=== PATIENT | female | born 1995 | race Caucasian/White ===

== ENCOUNTER 2019-02-18 13:20 | Inpatient (IN) | payer BC, MEDICAID ==
[~2019-02-18] VITALS: Ht 157.5 cm; Wt 68.0 kg
[~2019-02-18 13:20] MED LIST: ALPR-624 PO; [UNRECOGNIZED DRUG - REMARK]
[2019-02-18] MEDS ORDERED: normal saline 1000ML IV soln IVB ONE (16:15)
[2019-02-18] MEDS ORDERED: ondansetron/PF 4mg/2ml inj IV ONE (16:15)
[2019-02-18] MEDS ORDERED: morphine 4 MG/ML inj SYRINge IV ONE ×2 (16:15→18:55)
[2019-02-18] MEDS ORDERED: iohexol 300mg/ml 100ml inj. ONE (16:22)
[2019-02-18 16:55] LABS: BASOPHILS % (AUTO) 0.5 % (0-1); EOSINOPHILS # (AUTO) 0.1 X10'3 (0-0.9); EOSINOPHILS % (AUTO) 1.3 % (0-6); HEMATOCRIT 35.5 % (35.0-45.0); HEMOGLOBIN 12.3 g/dl (12.0-16.0); LYMPHOCYTES # (AUTO) 2.8 X10'3 (1.1-4.8); LYMPHOCYTES % (AUTO) 36.5 % (21-51); MEAN CORPUSCULAR HEMOGLOBIN 31.9 PG (27.0-31.0); MEAN CORPUSCULAR HGB CONC 34.7 g/dL (33.0-36.5); MEAN PLATELET VOLUME 8.8 FL (7.4-10.4); MONOCYTES # (AUTO) 0.6 X10'3 (0-0.9); NEUTROPHILS # (AUTO) 4.2 X10'3 (1.8-7.7); NEUTROPHILS % (AUTO) 53.7 % (42-75); PLATELET COUNT 220 X10'3 (140-440); RED BLOOD COUNT 3.86 X10'6 (4.20-5.60); RED CELL DISTRIBUTION WIDTH 12.3 % (11.5-14.5); WHITE BLOOD COUNT 7.7 X10'3 (4.5-11.0)
[2019-02-18 17:00] LABS: HCG SERUM QL NEGATIVE; LIPASE 62 U/L (73-393)
[2019-02-18 17:03] LABS: PARTIAL THROMBOPLASTIN TIME 26 SECONDS (22-32)
[2019-02-18 17:15] LABS: CLARITY,URINE CLEAR (Clear); COLOR,URINE YELLOW (Yellow); GLUCOSE, URINE NEGATIVE (Neg); KETONES,URINE NEGATIVE (Neg); LEUKOCYTE ESTERASE ,URINE NEGATIVE (Neg); NITRITES, URINE NEGATIVE (Neg); OCCULT BLOOD,URINE TRACE-INTACT (Neg); PROTEIN,URINE NEGATIVE (Neg); UROBILINOGEN,URINE 0.2 E.U/dL (0.2-1.0)
[2019-02-18 17:16] LABS: UA COLLECTION TYPE CLN CATCH MIDSTREAM
[2019-02-18 17:24] LABS: SQUAMOUS EPITHELIAL CELL,UR FEW /LPF (FEW)
[2019-02-18 17:26] LABS: BACTERIA,URINE 1+ /HPF (Neg); RBC,URINE 0-2 /HPF (0-2); WBC,URINE 0-4 /HPF (0-4)
[2019-02-18] MEDS ORDERED: NORG1TAB90 PO (18:38)
[2019-02-18] MEDS ORDERED: mag hydrox/Alum hydrox/simeth 30ml oral suspension PO PRN (20:20)
[2019-02-18] MEDS ORDERED: morphine 2 MG/ML inj. syringe IV PRN ×2 (20:20)
[2019-02-18] MEDS ORDERED: ondansetron/PF 4mg/2ml inj IV PRN (20:20)
[2019-02-18] MEDS ORDERED: acetaminophen 325mg tablet PO PRN ×2 (20:20)
[2019-02-18] MEDS ORDERED: HYDROcodone/acetaminophen 5mg/325mg tablet PO PRN (20:20)
[2019-02-18] MEDS ORDERED: magnesium hydroxide 30ml (MOM) UD suspension PO PRN (20:20)
[2019-02-18] MEDS: HYDROcodone/acetaminophen 10/325mg tab PO PRN (20:59)
[2019-02-18 22:57] VITALS: BP 109/70
[2019-02-19] VITALS: BP 102/60
[2019-02-19] MEDS: HYDROcodone/acetaminophen 10/325mg tab PO PRN ×4 (02:50→18:54)
[2019-02-19 05:10] LABS: BASOPHILS % (AUTO) 0.5 % (0-1); EOSINOPHILS # (AUTO) 0.2 X10'3 (0-0.9); EOSINOPHILS % (AUTO) 3.3 % (0-6); HEMATOCRIT 33.4 % (35.0-45.0); HEMOGLOBIN 11.6 g/dl (12.0-16.0); LYMPHOCYTES # (AUTO) 2.6 X10'3 (1.1-4.8); LYMPHOCYTES % (AUTO) 44.1 % (21-51); MEAN CORPUSCULAR HEMOGLOBIN 32.3 PG (27.0-31.0); MEAN CORPUSCULAR HGB CONC 34.7 g/dL (33.0-36.5); MEAN CORPUSCULAR VOLUME 93.2 FL (78-98); MEAN PLATELET VOLUME 9.5 FL (7.4-10.4); MONOCYTES # (AUTO) 0.6 X10'3 (0-0.9); MONOCYTES % (AUTO) 10.2 % (2-12); NEUTROPHILS # (AUTO) 2.4 X10'3 (1.8-7.7); NEUTROPHILS % (AUTO) 41.9 % (42-75); PLATELET COUNT 166 X10'3 (140-440); RED BLOOD COUNT 3.58 X10'6 (4.20-5.60); RED CELL DISTRIBUTION WIDTH 12.4 % (11.5-14.5); WHITE BLOOD COUNT 5.8 X10'3 (4.5-11.0)
[2019-02-19 05:27] LABS: ALANINE AMINOTRANSFERASE 75 U/L (12-78); ALBUMIN 2.9 G/DL (3.4-5.0); ALBUMIN/GLOBULIN RATIO 0.9 (1.1-1.5); ALKALINE PHOSPHATASE 47 IU/L (46-116); ANION GAP 5 (8-16); ASPARTATE AMINO TRANSFERASE 41 U/L (10-37); BILIRUBIN,TOTAL 0.2 MG/DL (0.1-1.0); BLOOD UREA NITROGEN 8 MG/DL (7-18); BUN/CREATININE RATIO 12.3 (6.6-38.0); CALCIUM 8.3 MG/DL (8.5-10.1); CHLORIDE 108 MMOL/L (99-107); CREATININE 0.65 MG/DL (0.40-0.90); GLUCOSE 101 MG/DL (70-104); POTASSIUM 3.8 MMOL/L (3.5-5.1); SODIUM 139 MMOL/L (135-145); TOTAL CARBON DIOXIDE 25.9 MMOL/L (24-32); eGFR > 90 ML/MIN
--- NOTE | 2019-02-19 06:15 | NUR ---
Patient in room [id number]. I have received report from Domingo WILSON and had the opportunity to ask questions and assume patient care.
--- NOTE | 2019-02-19 06:29 | NUR ---
Problems reprioritized. Patient report given, questions answered & plan of care reviewed with RADHA. Addendum: 02/19/19 at 0630 by Roberto Deleon RN Amended: Links added.
[2019-02-19 07:19] VITALS: BP 106/70
[2019-02-19] MEDS ORDERED: LORazepam 1 MG tablet PO PRN (07:20)
[2019-02-19] MEDS ORDERED: NORGESTIMATE ETHINYL ESTRADIOL PO SCH ×2 (08:00→21:00)
[2019-02-19 11:17] VITALS: BP 120/74
[2019-02-19 16:56] VITALS: BP 117/82
--- NOTE | 2019-02-19 16:58 | NUR ---
reviewed nursing director charting
--- NOTE | 2019-02-19 17:59 | NUR ---
Problems reprioritized. Patient report given, questions answered & plan of care reviewed with Domingo WILSON.
[2019-02-19 18:30] VITALS: BP 119/75
[2019-02-19] MEDS ORDERED: normal saline 1000ml 1,000 ML IV ONE (19:20)
[2019-02-19] MEDS ORDERED: sennosides/docusate sodium tablet PO SCH (21:00)
[2019-02-20] VITALS: BP 99/82
[2019-02-20 05:20] LABS: BASOPHILS % (AUTO) 0.5 % (0-1); EOSINOPHILS # (AUTO) 0.3 X10'3 (0-0.9); EOSINOPHILS % (AUTO) 4.2 % (0-6); HEMATOCRIT 36.9 % (35.0-45.0); HEMOGLOBIN 12.7 g/dl (12.0-16.0); LYMPHOCYTES # (AUTO) 2.5 X10'3 (1.1-4.8); LYMPHOCYTES % (AUTO) 40.2 % (21-51); MEAN CORPUSCULAR HEMOGLOBIN 31.9 PG (27.0-31.0); MEAN CORPUSCULAR HGB CONC 34.4 g/dL (33.0-36.5); MEAN PLATELET VOLUME 9.3 FL (7.4-10.4); MONOCYTES # (AUTO) 0.7 X10'3 (0-0.9); MONOCYTES % (AUTO) 10.8 % (2-12); NEUTROPHILS # (AUTO) 2.7 X10'3 (1.8-7.7); NEUTROPHILS % (AUTO) 44.3 % (42-75); PLATELET COUNT 199 X10'3 (140-440); RED BLOOD COUNT 3.97 X10'6 (4.20-5.60); RED CELL DISTRIBUTION WIDTH 12.2 % (11.5-14.5); WHITE BLOOD COUNT 6.2 X10'3 (4.5-11.0)
[2019-02-20 05:40] LABS: ALANINE AMINOTRANSFERASE 64 U/L (12-78); ALBUMIN 3.2 G/DL (3.4-5.0); ALKALINE PHOSPHATASE 46 IU/L (46-116); ANION GAP 6 (8-16); ASPARTATE AMINO TRANSFERASE 29 U/L (10-37); BILIRUBIN,TOTAL 0.3 MG/DL (0.1-1.0); BLOOD UREA NITROGEN 13 MG/DL (7-18); BUN/CREATININE RATIO 20.3 (6.6-38.0); CALCIUM 8.5 MG/DL (8.5-10.1); CHLORIDE 106 MMOL/L (99-107); CREATININE 0.64 MG/DL (0.40-0.90); GLUCOSE 91 MG/DL (70-104); POTASSIUM 4.2 MMOL/L (3.5-5.1); SODIUM 139 MMOL/L (135-145); TOTAL CARBON DIOXIDE 26.6 MMOL/L (24-32); TOTAL PROTEIN 6.5 G/DL (6.4-8.2); eGFR > 90 ML/MIN
--- NOTE | 2019-02-20 06:53 | NUR ---
Problems reprioritized. Patient report given, questions answered & plan of care reviewed with MARY LOU. Addendum: 02/20/19 at 0653 by Roberto Deleon RN Amended: Links added.
--- NOTE | 2019-02-20 07:12 | NUR ---
Patient in room [id number]. I have received report from Domingo WILSON and had the opportunity to ask questions and assume patient care.
[2019-02-20 08:00] VITALS: BP 98/59
[2019-02-20 11:00] VITALS: BP 119/69
[2019-02-20] MEDS ORDERED: HYDR-3965 PO (12:39)
--- NOTE | 2019-02-20 13:30 | NUR ---
Pt discharged to home with bhavesh. Pt verbalized understanding of DC instructions. pt given a prescription for norco which she is going to take to pharmacy of her choice. Also a note given for her job. pt is wheeled out by staff member and bhavesh driving her home. Pt A&O, with no signs of pain of discomfort.
== END 2019-02-20 13:36 | disposition home or self-care (01) | DRG 443 ==
LOC: ER 13:21 → ED HOLD 20:30 → OBSVTOIN 20:30 → SUR 3N 21:39
PROVIDERS: ADMIT Internal Medicine; ATTEND Hospitalist
PROC: BW251ZZ Computerized Tomography (CT Scan) of Chest, Abdomen and Pelvis using Low Osmolar Contrast (ICD-10-PCS; principal; 2019-02-18)
DX: S36.116A Major laceration of liver, initial encounter (principal); F12.90 Cannabis use, unspecified, uncomplicated; S06.0X0A Concussion without loss of consciousness, initial encounter; S16.1XXA Strain of muscle, fascia and tendon at neck level, initial encounter; S20.211A Contusion of right front wall of thorax, initial encounter; S50.02XA Contusion of left elbow, initial encounter; S80.11XA Contusion of right lower leg, initial encounter; V86.69XA Passenger of other special all-terrain or other off-road motor vehicle injured in nontraffic accident, initial encounter; Y93.89 Activity, other specified; Y92.89 Other specified places as the place of occurrence of the external cause; Y99.8 Other external cause status
CPT/HCPCS: 36415; 71260; 74177; 80053; 81001; 83690; 84703; 85025; 85610; 85730; 86885; 86900; 86901; 87081; 96374; 96375; 96376; 99285; G0378; J2270; J2405; J7030; Q9967